=== PATIENT | female | born 1940 | race Two or more races ===

== ENCOUNTER 2024-07-15 05:40 | Day surgery (SDC) | payer MEDICARE, SELFPAY ==
[2024-07-13 12:13] VITALS: BMI 25.1
[2024-07-13 12:47] LABS: Basophils % (Auto) 0 % (0-2.5); Eosinophils # (Auto) 0.1 Thou/mm3 (0.0-0.5); Eosinophils % (Auto) 3 % (0-10); Hematocrit 36.3 % (36.0-46.0); Immature Granulocytes % (Auto) 0 % (0-0); Lymphocytes # (Auto) 1.7 Thou/mm3 (1.0-4.8); Lymphocytes % (Auto) 36 % (10-50); Mean Corpuscular HGB Conc 33.1 g/dl (31.0-37.0); Mean Corpuscular Hemoglobin 30.6 pg (25.0-35.0); Mean Corpuscular Volume 93 fL (80-100); Monocytes # (Auto) 0.4 Thou/mm3 (0.0-0.8); Monocytes % (Auto) 8 % (0-12); Neutrophils # (Auto) 2.4 Thou/mm3 (1.8-7.7); Neutrophils % (Auto) 53 % (37-80); Nucleated Red Blood Cell % 0 /100 WBC (0); Platelet Count 157 Thou/mm3 (140-440); RDW Standard Deviation 44.9 fL (36.4-46.3); Red Blood Count 3.92 Miln/mm3 (4.00-5.20); White Blood Count 4.6 Thou/mm3 (3.6-11.0)
[2024-07-13 13:03] LABS: Partial Thromboplastin Time 26.1 Seconds (22.0-36.0)
[2024-07-13 13:15] LABS: Alanine Aminotransferase 16 U/L (10-49); Albumin, Serum 4.8 gm/dL (3.4-4.8); Alkaline Phosphatase 66 U/L (46-116); Anion Gap 9 (7-16); Aspartate Amino Transferase 18 U/L (0-34); BUN/Creatinine Ratio 21 Ratio (12-20); Bilirubin,Total 0.6 mg/dL (0.3-1.2); Blood Urea Nitrogen 23 mg/dL (9-23); Calcium 9.7 mg/dL (8.3-10.6); Calcium (Corrected) 9.7 mg/dL (8.5-10.1); Carbon Dioxide 26.3 mMol/L (20.0-31.0); Chloride 105 mMol/L (98-107); Creatinine (Component) 1.1 mg/dL (0.6-1.3); Estimated Creatinine Clearance 32.9 mL/min (>60); Globulin 2.4 gm/dL (2.3-3.5); Glucose 103 mg/dL (74-106); Osmolality,Calculated 283 (275-295); Potassium 4.2 mMol/L (3.4-5.1); Sodium 140 mMol/L (136-145); Total Protein 7.2 gm/dL (5.7-8.2); eGFR 50 See Note
--- NOTE | 2024-07-13 14:55 | SUR.PREOP ---
Cardiac records reviewed with Dr Rosario.
[2024-07-15] VITALS (8 sets, daily range): BP systolic 144–191; BP diastolic 62–78; PULSE 62–70; RESP 14–20; TEMP 36.2–36.9; O2SAT 95–100; BMI 23.3
[2024-07-15] MEDS: RINGERS LACTATED 1000 ML 1,000 ML 20 ML IV (07:03)
--- NOTE | 2024-07-15 09:25 | ESOP_ITS ---
Date of Procedure 07/15/24 Pre Op Diagnosis Symptomatic right inguinal hernia Post Op Diagnosis Same, indirect inguinal hernia Procedure Repair of the right indirect inguinal hernia with high ligation of the sac and placement of 2 x 4 Marlex mesh on the floor of the inguinal canal Findings Patient was found to have sac which was protruding as a hernia which required ligation Procedure Description After the patient was given endotracheal anesthesia is lower abdomen was prepped with chloreprep solution and draped. Standard right groin incision was made in the external oblique was reached. Incision was made over the external oblique and the patient was found to have a large sac next to the cord structures. The cord structures were encircled around a [place] drain and the sac was easily . It was opened and was found to contain a loop of bowel. Patient had a large opening in this hernial sac in the mouth of the internal ring was wide. I suture ligated this with 2-0 chromic and then divided. Another 2-0 chromic suture ligation was used to prevent any slippage of the previous suture. Then I palpated the floor of the inguinal canal which appeared to be strong. Patient also had a small protrusion of preperitoneal fat which was suture-ligated at the internal ring. I placed a 2 x 4 Marlex mesh and attached it medially to the pubic tubercle and laterally it was tucked underneath the external oblique . No suture was placed laterally. Then external oblique was closed with running 2-0 Vicryl and subcutaneous tissues was approximated with 30 plain I injected half percent Marcaine with epinephrine for analgesia and the skin was closed with 4-0 Monocryl. Dressing was applied with Adaptic and 4 x 4 and the patient tolerated the procedure well and left operating room in stable condition. Anesthesia GETA Implants 2 x 4 Marlex mesh Pathology / specimen None Estimated Blood Loss 0 Surgeon Jayce Dominguez MD Surgical Staff Operation Date: 07/15/24 08:00 Case Staff Anesthesiologist: Jose Remy RN First Assistant: Kari Sidhu
--- NOTE | 2024-07-15 09:30 | SUR.PHASEI ---
0930: Pt. wakes to name then drifts back to sleep, vitals stable, breathing unlabored, no complaint of pain or nausea, dressing to lower right ABD CDI, no active bleed noted, report received from Montrell WISE and MD Remy.
--- NOTE | 2024-07-15 10:24 | SUR.PHASEII ---
1024: Pt. AAOx4, vitals stable, breathing unlabored, no complaint of pain or nausea, dressing to lower ABD CDI, no active bleed noted, pt. tolerated sips of juice well, pt. ambulated to wheelchair with steady gait and no assist, no complications. Gave discharge instructions to the pt. and her ride using water softener servicer Princess, both verbalized understanding and had no further questions. Pt. left with all personal belongings.
== END 2024-07-15 10:24 | disposition home or self-care (01) ==
PROVIDERS: PCP Family Medicine; Referring Provider Surgery; Visit Provider Surgery
PROC: (CPT 49505; principal; 2024-07-15 08:00)
DX: K40.90 Unilateral inguinal hernia, without obstruction or gangrene, not specified as recurrent (principal)
CPT/HCPCS: 49505; 36415; 80053; 85025; 85610; 85730; A4217; A4649; C1781; J1100; J2371; J2405; J2704; J3010; J3490; J7120